=== PATIENT | male | born 1970 | race Caucasian/White ===

== ENCOUNTER 2016-06-19 20:17 | Emergency (ER) | payer OTHER ==
[~2016-06-19] VITALS: Ht 177.8 cm; Wt 102.0 kg
[~2016-06-19 20:17] MED LIST: METO100T3 PO
[2016-06-19 20:25] VITALS: BP 166/98; PULSE 96; RESP 16; O2SAT 99
[2016-06-19] MEDS ORDERED: METO25TA6 PO (20:29)
[2016-06-19] MEDS ORDERED: LOSA100T29 PO (20:33)
[2016-06-19] MEDS ORDERED: Famotidine 20 mg/50 mL NS Premix IV ONE (20:36)
[2016-06-19] MEDS ORDERED: MethylprednisoLONE Sodium Succinate 62.5 mg/mL 2 mL Inj ONE (20:36)
[2016-06-19] MEDS ORDERED: Famotidine Inj 20 MG in IV Premix 1 EACH IV ONE (20:50)
[2016-06-19] MEDS ORDERED: predniSONE 20 mg Tablet PO ONE (20:50)
[2016-06-19] MEDS ORDERED: Ondansetron 2 mg/mL 2 mL Inj ONE (20:53)
[2016-06-19] MEDS ORDERED: Ondansetron 2 mg/mL 2 mL Inj IVPUSH ONE (21:05)
[2016-06-19] MEDS ORDERED: MethylprednisoLONE Sodium Succinate 62.5 mg/mL 2 mL Inj IVPUSH ONE (21:10)
--- NOTE | 2016-06-19 21:22 | ED.REPORT ---
HPI-Allergic Reaction Date of Service Jun 19, 2016 ED Provider: Candido Beltran DO 46-year-old male asked medical history of hypertension presents to the ED secondary to a self reported allergic reaction. Patient states earlier this evening approximately 30 minutes prior to presentation he ate apples, cheddar cheese and a banana. He immediately developed swelling in his throat, red hives on his trunk upper and lower extremities with nausea. He reports 1 prior episode of this in the recent past after eating a banana where he had similar symptoms. These included throat swelling and a minor rash. This lasted for a period of hours before it self resolved. He has not sought out medical attention for this since original episode. He describes the throat swelling as if there is a lump in his throat, patient states this is accompanied with a difficulty in breathing. Patient does not endorse any chest pain, vomiting, headache or visual disturbances. Nursing Notes Stated Complaint: ALLERGIC REACTION Chief Complaint: Allergic Reaction Allergies: Coded Allergies: Penicillins (Verified Allergy, Unknown, 06/19/16) Scheduled Fexofenadine (Elinor Allergy) 60 Mg Tablet 60 MG PO DAILY Metoprolol Tartrate (Metoprolol Tartrate) 25 Mg Tablet 25 MG PO DAILY Scheduled PRN Epinephrine (Epipen 2-Dev) 0.3 Mg/0.3 Ml Auto.injct 0.3 MG IJ DIRECTED PRN PRN For Anaphyllaxis Miscellaneous Medications Losartan Potassium (Losartan Potassium) 100 Mg Tablet 100 MG PO General Time Seen by MD: 20:36 Chief Complaint Allergic reaction Hx Obtained From: Patient Past Medical History Past Medical History Reports: Hypertension Past Surgical History none reported Family History No history of IN Mother had HTN Smoking History Never Smoker Social History Other Social History: Smokeless tobacco Ambulatory Status Independent Review of Systems Basic Review of Systems Cardiovascular: No chest pain, No palpitations Musculoskeletal: No extremity swelling Constitutional: Denies: Chills Eyes: Denies: Blurred bilateral, Photophobia, Redness bilateral, Visual loss bilateral Ears / Nose / Throat: Reports: Throat swelling, Denies: Ear ringing bilateral, Hearing loss bilateral, Nasal congestion, Sinus problem, Throat pain, Tongue pain, Tongue swelling, Voice change Respiratory: Reports: Shortness of breath, Denies: Pleuritic pain, Prod cough, bloody, Prod cough, brown, Prod cough, clear, Prod cough, green, Prod cough, white, Prod cough, yellow, Wheezing GI: Reports: Nausea, Denies: Abdominal pain, Belching, Bloody/tarry stool, Constipation, Diarrhea , Dysphagia, Mucousy stool, Vomiting Neurologic: Denies: Abnormal movement, Change LOC, Confusion, Dizziness, Focal weakness, Headache, Lightheaded, Numbness, Seizure, Shaking, Slurred speech, Spinning sensation, Syncope, Unable to speak, Vision change, Weakness Physical Exam General: Moderate distress, well-developed, well-nourished, HEENT: Normocephalic, atraumatic. External ears without defect. Pupils equal, round, and reactive to light and accommodation. Anicteric sclerae, moist conjunctivae, and no lid lag. Oropharynx free of erythema and cobble stoning with moist mucosa, posterior oropharynx erythema and swelling. Neck: Supple with full range of motion. No pain to palpation, submandibular swelling present. No jugular venous distension. Cardiovascular: Regular rate and rhythm with no murmurs, rubs, or gallops appreciated Pulmonary: Clear to auscultation bilaterally with no crackles, wheezes, or rhonchi. Normal respiratory effort with no use of accessory muscles slightly tachypneic. Abdomen:. Soft, nontender, nondistended. Extremities: No clubbing, cyanosis, edema, or lymphadenopathy appreciated. Skin: Normal temperature, turgor, and texture; erythematous skin with red raised wheals over trunk and upper and lower extremities Neurological: Cranial nerves grossly intact. Normal muscle strength, tone, and bulk. Reflexes, coordination, and sensory function within normal limits. No known gait impairment. Psychiatric: Normal mood and affect. Alert and oriented to person, place, and time. Initial Vital Signs Vital Signs (First) Date Time Temp Pulse Resp B/P Pulse Ox O2 Delivery O2 Flow Rate FiO2 06/19/16 20:25 36.8 96 16 166/98 99 Room Air Interpretation & Diagnostics Lab Results Interpretation Result Diagram: 06/19/16202506/19/162025 Test 06/19/16 20:26 White Blood Count 10.9th/mm3 (3.8-10.1) Red Blood Count 5.43mil/mm3 (4.40-5.80) Hemoglobin 16.3g/dL (13.8-17.2) Hematocrit 47.8% (41.0-50.0) Mean Corpuscular Volume 88.0fL (81-100) Mean Corpuscular Hemoglobin 30.0pg (27.0-35.0) Mean Corpuscular Hemoglobin Concent 34.1% (32.0-37.0) Red Cell Distribution Width 13.0% (12.3-15.4) Platelet Count 265bil/L (150-400) Hold Purple Top Tube Received (Received) Hold Blue Top Tube Received (Received) Sodium Level 140mEq/L (134-144) Potassium Level 4.1mEq/L (3.5-5.2) Chloride Level 103mEq/L (97-108) Carbon Dioxide Level 25mmol/L (18-29) Blood Urea Nitrogen 17mg/dL (6-24) Creatinine 0.97mg/dL (0.76-1.27) Estimat Glomerular Filtration Rate 89mL/min (>59) Glucose Level 111mg/dL (60-99) Calcium Level 9.3mg/dL (8.5-10.1) Total Bilirubin 1.4mg/dL (0.0-1.2) Aspartate Amino Transf (AST/SGOT) 40U/L (0-50) Alanine Aminotransferase (ALT/SGPT) 40U/L (0-44) Alkaline Phosphatase 49U/L (25-150) Total Protein 7.2g/dL (6.4-8.4) Albumin 4.4g/dL (3.4-5.0) Hold [place] Top Tube Received (Received) Hold [place] Top Tube Received (Received) Re-Eval/Medical Decision Med Decision/Clinical Course Based on presenting symptoms patient given famotidine, Solu-Medrol, Benadryl with minimal effect. Patient's heart rate remained above 100, respiratory rate mid 20s though saturating 95%. Patient was not in tripod position nor did he appear to have significant work of breathing. After initial medication administration patient's symptoms did not improve skin remained erythematous with raised wheals, actually appeared to increase in severity. Patient given epinephrine 0.4 with effect. Patient remained on court recording monitor and was hemodynamically stable throughout ED stay. EKG showed sinus rhythm. CBC showed mildly elevated white count, this is most likely secondary to a stress reaction otherwise unremarkable. CMP unremarkable. Patient discharged home in stable condition with prescription for EpiPen as well as Elinor and instructions on when and why to return to the ED focusing on anaphylactic reactions as well as cardiac abnormalities. Discharge & Departure Primary Impression: Allergic reaction Encounter type: initial encounter Qualified Code: T78.40XA - Allergy, unspecified, initial encounter Disposition: Home Discharge Condition All VS Reviewed: Yes Condition: Stable Additional Instructions: The allergic reaction you suffered from today was most likely secondary to your banana ingestion. Please, no more bananas. You responded very well to our medications (which included epinephrin, steroids and benadryl), and your heart remained stable throughout your ED stay. I am giving you a prescription for an EpiPen that you may use if you experience any return of these symptoms in the future. (I have included instructions on how to use your EpiPen) I am also giving a prescription for Elinor which is anti-allergy medication, you may take 60 mg of this medication daily as needed. If you have any return of your symptoms or if you develope any chest pain dizziness, sweating, palpitations, nausea, vomiting, visual changes, difficulty breathing, shortness of breath or feeling as if your throat is closing please return to the emergency department or call 911 immediately Please follow up with your primary care provider regarding today's emergency room visit. Referrals: Stan Velásquez DO (PCP) Attending Statement Examined. Agree with assessment and plan home with EpiPen and instructions given CANDIDO BELTRAN DO Jun 19, 2016 21:22 Argentina Stover MD Jun 19, 2016 22:20
[2016-06-19 21:25] VITALS: BP 169/92; PULSE 82; RESP 17; O2SAT 97
[2016-06-19] MEDS ORDERED: EPIN0.3P2 IJ (22:50)
[2016-06-19] MEDS ORDERED: FEXO-15 PO (22:51)
[2016-06-19 23:14] VITALS: BP 154/89; PULSE 84; RESP 18; O2SAT 96
== END 2016-06-19 23:16 | disposition home or self-care (01) ==
LOC: SED 20:17
DX: T78.1XXA Other adverse food reactions, not elsewhere classified, initial encounter (principal); I10 Essential (primary) hypertension; Z88.0 Allergy status to penicillin
CPT/HCPCS: 36415; 80053; 85027; 93005; 96365; 96372; 96375; 99285; J0171; J1200; J2405; J2930; J3490